=== PATIENT | female | born 1945 | race Caucasian/White ===

== ENCOUNTER 2024-01-16 11:46 | Outpatient (OUT) | payer MEDICARE, MEDICAID, SELFPAY ==
[2024-01-16 12:27] LABS: Basophils Absolute Auto 0.1 10^3/uL (0.0-0.1); Basophils Percent Auto 1.1 % (0.2-2.0); Eosinophils Absolute Auto 0.4 10^3/uL (0.0-0.7); Eosinophils Percent Auto 3.8 % (0.9-7.0); Hematocrit 39.5 % (36.0-48.0); Hemoglobin 12.9 g/dL (12.0-16.0); Immature Granulocytes Abs Auto 0.04 10^3/uL (0.00-0.03); Immature Granulocytes Pct Auto 0.4 % (0.0-0.5); Mean Corpuscular HGB Conc 32.7 g/dL (29.9-35.2); Mean Corpuscular Hemoglobin 30.6 pg (26.7-34.0); Mean Corpuscular Volume 93.6 fL (81.0-99.0); Monocytes Absolute Auto 0.8 10^3/uL (0.3-0.8); Monocytes Percent Auto 8.1 % (1.7-12.0); Neutrophils Absolute Auto 6.1 10^3/uL (1.4-6.5); Neutrophils Percent Auto 65.6 % (43.0-75.0); Platelet Count 326 10^3/uL (150-450); Red Blood Count 4.22 10^6/uL (4.20-5.40); Red Cell Distribution Width 13.2 % (11.0-15.0); White Blood Count 9.3 10^3/uL (4.0-11.0)
[2024-01-16 12:58] LABS: Free T4 1.21 ng/dL (0.76-1.46)
[2024-01-16 13:00] LABS: Alanine Aminotransferase 18 U/L (14-59); Albumin Globulin Ratio 0.9; Albumin Level 3.6 g/dL (3.4-5.0); Alkaline Phosphatase 91 U/L (46-116); Anion Gap 14.3; Aspartate Amino Transferase 16 U/L (15-37); BUN Creatinine Ratio 21.6; Bilirubin Total 0.4 mg/dL (0.2-1.0); Calcium 9.5 mg/dL (8.5-10.1); Carbon Dioxide 28.3 mmol/L (21.0-32.0); Chloride 102 mmol/L (98-107); Chol HDL Ratio 3.5; Cholesterol 169 mg/dL (<=200); Estimated GFR (African America >60 (>=60 mL/min/1.73m^2); Estimated GFR (Non-African Ame 53 (>=60 mL/min/1.73m^2); Globulin 3.8 g/dL; Glucose 253 mg/dL (74-106); HDL Cholesterol 48 mg/dL (40-60); Potassium 3.6 mmol/L (3.5-5.1); Sodium 141 mmol/L (136-145); Total Protein 7.4 g/dL (6.4-8.2); Triglycerides 206 mg/dL (<=150); VLDL CHOLESTEROL 41.2 mg/dL
== END 2024-01-16 11:47 | disposition home or self-care (01) ==
DX: E11.65 Type 2 diabetes mellitus with hyperglycemia (principal); I10 Essential (primary) hypertension
CPT/HCPCS: 36415; 80053; 80061; 84439; 84443; 84681; 85025

== ENCOUNTER 2024-05-02 10:36 | Outpatient (OUT) | payer MEDICARE, MEDICAID, SELFPAY ==
--- OUTSIDE RECORDS SUMMARY | 2024-05-02 10:49 | XMS_ITS | CCD ---
Demographics Address [address] [place] [address] Preferred Language en Marital Status Worship Affiliation Unknown Race White Ethnic Group Not or Lati no Author Organization [facility] Care Team Providers Care Joiner Apprentice Name Role Phone ROSA VOGEL Unavailable Unavailable ROSA VOGEL Unavailable Unavailable ROSA VOGEL Unavailable Unavailable ZISAUL ROMERO Unavailable Unavailable LE, ANDRES Unavailable Unavailable LE, ANDRES Unavailable Unavailable MISC, DOCTOR Unavailable Unavailable SAUL RODRIGUEZ Unavailable Unavailable PAY, BENITO Unavailable Unavailable GRECHNY, ELHAM Unavailable Unavailable Rose Hancock Unavailable Vero Painting Unavailable TASH Zavala Attending Provider TASH Zavala Attending Provider TASH Zavala Attending Provider TASH Zavala Primary Care Provide r Zuleika Reyez Attending U Zuleika Napier Admitting U navailMacey Patel Admitting Unavailab Macey Balderrama Attending Unavailab Macey Balderrama Primary Care Unavailab Macey Balderrama Admitting Unavailab le Macey Zavala Attending Unavailab PETE Peterson Attending Pr ovider Allergies Allergy Classification Reported Allergen(s) Allergy Type Date of Onset Reaction(s) Facility (1 source) No Known Drug Allergies Drug allergy (disorder) [facility] (1 source) No Allergy Information Available Drug allergy (disorder) [facility] (3 sources) some anestesia Propensity to adverse reactions itching et blisters First Active Media Other Medications Current Medications Medication Drug Class(es) Dates Sig (Normalized) Sig (Original) acetaminophen 325 mg / HYDROcodone bitartrate 5 mg oral tablet (11 sources) Opioid Agonist Start: 04-28-2019 take 1 tablet by mouth every six hours Hydrocodone-Aceta minophen ([place]) 5-325 mg tablet Active 1 TAB PO Q6H 6 2 April 28, 2019 Start: 04-28-2019 Hydrocodone-Ac etaminophen Active TABLET April 28, 2019 1:00am HYDROcodone-Acet aminophen Active [id number] 200 actuat albuterol 0.09 mg/actuat metered dose inhaler (13 sources) beta2-Adrenergic Agonist Start: 09-02-2021 take 2 puff(s) by inhalation four times daily as needed Albuterol Sulfate HFA 108 (90 Base) MCG/ACT 2 puffs Inhalation 4 times a day prn Sep, Active Start: 04-28-2019 Albuterol Sulf ate Active April 28, 2019 1:00am Start: 02-17-2017 take 2 puff(s) by in halation every four hours as needed Albuterol Sulfate HFA 108 (90 Base) MCG/ACT 2 puffs as needed Inhalation every 4 hrs Apr, Active Start: 07-31-2015 take 2 puff(s) by in halation every four hours as needed ProAir HFA 108 (90 Base) MCG/ACT 2 puffs as needed Inhalation every 4 hrs for 10 days Jul, Not-Taking azithromycin 250 mg oral tablet (4 sources) Macrolide Antimicrobial Start: 03-17-2019 Azithromycin 250 MG 2 tablet on the first day, then 1 tablet daily for 4 days Orally Once a day for 5 day(s) Sep, Active benzonatate 100 mg oral capsule (10 sources) Non-narcotic Antitussive Start: 03-17-2019 Benzonatate Active April 28, 2019 1:00am Start: 07-31-2015 take 1 capsule by mo [facility] three times daily as needed Tessalon 200 mg 1 capsule as needed Orally Three times a day for 10 day(s) Jul, Not-Taking busPIRone hydrochloride 15 m g oral tablet (7 sources) Start: 04-28-2019 Buspirone Acti ve TABLET April 28, 2019 1:00am busPIRone HCl Ac tive Cinnamon Preparation (3 sources) Non-Standardized Food Allergenic Extract Cinnamon Active Cranberry preparation (3 sources) Non-Standardized Food Allergenic Extract, Non-Standardized Plant Allergenic Extract Cranberry Active cyclobenzaprine hydrochloride 10 mg oral tablet (11 sources) Muscle Relaxant Start: 020 take 10 mg by mouth three times daily Cyclobenzaprine Active 10 MG PO Three times daily April 28, 2019 4:06pm Cyclobenzaprine HCl Active dilTIAZem hydrochloride 120 mg oral tablet (10 sources) Calcium Channel Pato Start: 04-28-2019 Diltiazem Hcl Active TABLET April 28, 2019 1:00am dilTIAZem HCl 12 0 MG Oral for 90 Not-Taking Diltiazem CD Act kade Garlic preparation (3 sources) Non-Standardized Food Allergenic Extract Garlic Active glipiZIDE 10 mg oral tablet (3 sources) Sulfonylurea take 1 tablet by mouth once daily 30 minutes before breakfast glipiZIDE 10 MG 1 tablet 30 minutes before breakfast Orally Once a day Active glyBURIDE 5 mg oral tablet (7 sources) Sulfonylurea Start: 04-28-19 20 Glyburide Active TABLET April 28, 2019 1:00am glyBURIDE Not-Ta nya hydroCHLOROthiazide 25 mg oral tablet (7 sources) Thiazide Diuretic Start: 04-28-2019 Hydrochlorothiazide Active TABLET April 28, 2019 1:00am hydroCHLOROthiaz seth Active hydroCHLOROthiazide / Lisinopril (3 sources) Thiazide Diuretic, Angiotensin Converting Enzyme Inhibitor Lisinopril-hydroCHLO ROthiazide Active lisinopril 20 mg oral tablet (4 sources) Angiotensin Converting Enzyme Inhibitor Start : 04-28 Lisinopril Active TABLET Apr 1:00am naproxen 500 mg oral tablet (7 sources) Nonsteroidal Anti-inflammatory Drug Start : 04-28 Naproxen Active TABLET 2019 1:00am Naproxen Active Naproxen Not-Casey ing nitrofurantoin, macrocrystals 25 mg / nitrofurantoin, monohydrate 75 mg oral capsule (1 source) Nitrofuran Antibacterial Start: 02-13-2021 take 1 capsule by mouth every twelve hours Macrobid 100 MG 1 cap(s) Orally bid for 5 day(s) Feb, Active phenazopyridine hydrochloride 200 mg oral tablet (1 source) Start: 02-13-2021 take 1 tablet by mouth every eight hours Pyridium 200 MG 1 tablet after meals Orally Three times a day for 2 day(s) Feb, Active pioglitazone 45 mg oral tablet (10 sources) Peroxisome Proliferator Receptor alpha Agonist, Peroxisome Proliferator Receptor gamma Agonist, Thiazolidinedione Start: 04-28-2019 Pioglitazone Active TABLET April 28, 2019 1:00am Pioglitazone HCl 45 MG Oral for 90 Not-Taking Actos Active predniSONE 20 mg oral tablet (4 sources) Start: 07-31-2015 take 1 tablet by mouth every twelve hours predniSONE 20 MG 1 tablet Orally 2 times a day for 5 day(s) Sep, Active Vitamin D (3 sources) Vitamin D Active Completed/Discontinued Medications Medication Drug Class(es) Dates Sig (Normalized) Sig (Original) Albuterol Sulfate (2.5 MG/ 3 ML) 2.5 MG/3ML 0.083% Nebulization Solution (3 sources) Start: 03-17-2019 Albuterol Sulfate (2.5 MG/ 3 ML) 2.5 MG/3ML 0.083% Nebulization Solution 3 ml Inhalation every 4 to 6 hours for 30 days Mar, Not-Taking amoxicillin 500 mg oral capsule (3 sources) Penicillin-class Antibacterial Start: 07-31-2015 take 2 capsules by mouth every eight hours Amoxicillin 500 mg 2 Capsules Orally Three times a day for 10 day(s) Jul, Not-Taking Aspir-81 (3 sources) Aspir-81 Not-Taking doxycycline monohydrate 100 mg oral capsule (3 sources) Tetracycline-class Drug Start: 02-17-2017 take 1 capsule by mouth every twelve hours Doxycycline Monohydrate 100 MG 1 capsule Orally every 12 hrs for 10 days Feb, Not-Taking fluticasone propionate 0.05 mg/actuat metered dose nasal spray (6 sources) Corticosteroid Start: 04-16-2018 take 2 spray(s) nasal route once daily Fluticasone Propionate 50 MCG/ACT 2 sprays in each nostril Nasally Once a day for 14 days pt last took 4 days ago Apr, Not-Taking Start: 02-17-2017 take 1 spray(s) nasa l route once daily Fluticasone Propionate 50 MCG/ACT 1 spray in each nostril Nasally Once a day for 21 days Feb, Not-Taking Fluticasone Propionate HFA 110 MCG/ACT (3 sources) Start: 02-17-2017 take 1 puff(s) by inhalation twice daily Fluticasone Propionate HFA 110 MCG/ACT 1 puff Inhalation Twice a day Feb, Not-Taking glipiZIDE / metFORMIN (3 sources) Biguanide, Sulfonylurea GlipiZIDE-Metfor min HCl Not-Taking guaiFENesin-Codeine 10-100 MG/5ML (3 sources) Start: 07-31-2015 take 10 mL by mouth once at bedtime as needed for cough guaiFENesin-Code ine 10-100 MG/5ML 10 ml Orally every HS prn cough for 10 day(s) Jul, Not-Taking hydrOXYzine (3 sources) Antihistamine hydrOXYzine Pamoate Not-Taking meloxicam (3 sources) Nonsteroidal Anti-inflammatory Drug Meloxicam Not-Taking methylPREDNISolone (1 source) Corticosteroid Start: 07-31-2015 Depo-Medrol 80 mg Jul, 80 mg oseltamivir 75 mg oral capsule (2 sources) Neuraminidase Inhibitor Start: 04-23-2021 take 1 capsule by mouth every twelve hours Oseltamivir Phosphate 75 MG 1 capsule Orally Twice a day for 5 day(s) Apr, Not-Taking tiZANidine 4 mg oral tablet (4 sources) Central alpha-2 Adrenergic Agonist Start: 04-28-2019 End: 04-28-2019 Tizanidine Discontinued TABLET April 28, 2019 1:00am April 28, 2019 3:41pm Problems Active Problems Problem Classification Problem Date Documented Da te Episodic/Chronic Abdominal pain (1 source) Lower abdominal pain, unspecified; Translations: [LOWER ABDOMINAL PAIN UNSPECIFIED] Onset: 07-11-2017 Episodic Asthma (1 source) Unspecified asthma, uncomplicated; Translations: [UNSPECIFIED ASTHMA UNCOMPLICATED] Onset: 05-03-2017 Chronic Diabetes mellitus with complications (2 sources) Type 2 diabetes mellitus with hyperglycemia; Translations: [Type 2 diabetes mellitus with hyperglycemia] Onset: 02-21-2023 Chronic Essential hypertension (2 sources) Essential (primary) hypertension; Translations: [ESSENTIAL PRIMARY HYPERTENSION] Onset: 07-11-2017 Chronic Genitourinary symptoms and ill-defined conditions (3 sources) Urinary incontinence; Translations: [Unspecified urinary incontinence] Chronic Nausea and vomiting (1 source) Nausea; Translations: [NAUSEA] Onset: 07-11-2017 Episodic Other aftercare (1 source) 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; 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] Onset: 07-11-2017 Episodic Other gastrointestinal disorders (4 sources) Diarrhea, unspecified; Translations: [DIARRHEA UNSPECIFIED] Onset: 07-07-2017 Episodic Screening or history of mental health and substance abuse (1 source) Personal history of nicotine dependence; Translations: [PERSONAL HISTORY OF NICOTINE DEPEND] Onset: 07-11-2017 Episodic Sprains and strains (4 sources) Low back strain; Translations: [Strain of muscle, fascia and tendon of lower back, initial encounter] 04-28-2019 Episodic Past or Other Problems Problem Classification Problem Date Documented Date Episodic/Chronic Chronic obstructive pulmonary disease and bronchiectasis (1 source) Bronchitis, not specified as acute or chronic Onset: 09-02-2021 Resolved: 09-02-2021 Episodic Genitourinary symptoms and ill-defined conditions (2 sources) Dysuria; Translations: [Hematuria, unspecified] Onset: 02-13-2021 Resolved: 02-13-2021 Episodic Immunizations and screening for infectious disease (1 source) Contact with and (suspected) exposure to other viral communicable diseases Onset: 04-23-2021 Resolved: 04-23-2021 Episodic Influenza (1 source) Influenza due to other identified influenza virus with other respiratory manifestations Onset: 04-23-2021 Resolved: 04-23-2021 Episodic Other lower respiratory disease (3 sources) Cough; Translations: [COUGH] Onset: 04-30-2017 Episodic Urinary tract infections (1 source) Urinary tract infection, site not specified Onset: 02-13-2021 Resolved: 02-13-2021 Episodic Viral infection (1 source) COVID-19 Onset: 04-23-2021 Resolved: 04-23-2021 Results Test Name Value Interpretation Reference Range Facility Creatinine [Mass/volume] in UrineOrdered By: Zuleika Reyez on 01-12-2024 Creatinine (U) [Mass/Vol] 83.00 mg/dL [facility] Comment on above: No reference range e stablished MicroAlb Creat Ratio,UOrdere d By: Zuleika Reyez on 01-12-2024 Albumin DL <= 20 mg/L (U) [Mass/Vol] 0.9 mg/dL Normal 0.0-1.8 [facility] Comment on above: Order Comment: Reaso n for Exam Type 2 diabetes mellitus with hyperglycemia;Essential (prima Performed By: #### U RMACRERAT #### [place] [address] [place] MicroAlb Creat Ratio,Uon Creatinine, Urine (Random) 83.00 mg/dL Normal [facility] Comment on above: Order Comment: Reaso n for Exam Type 2 diabetes mellitus with hyperglycemia;Essential (prima Result Comment: No r eference range established Performed By: #### U RMACRERAT #### [address] Microalbumin/Creatinine Ratio 10.8 mg/g Normal 0.0-30.0 [facility] Comment on above: Order Comment: Reaso n for Exam Type 2 diabetes mellitus with hyperglycemia;Essential (prima Result Comment: 30-3 00 mg/g indicates an increased risk for diabetic nephropathy. Greater than 300 mg/g is consistent with clinical nephropathy. (Am. J. Kidney Disease 1995, 25:107) PERFORMED BY: [place] [address] PATHOLOGIST PAPER DELIVERER NADER RIVAS M.D. Performed By: #### U RMACRERAT #### [address] Urine microalbumin/creatinin e mass ratioOrdered By: Zuleika Reyez on 01-12-2024 Albumin/Creatinine DL <= 20 mg/L (U) [Mass ratio] 10.8 mg/g 0.0-30.0 [facility] Comment on above: 30-300 mg/g indicate s an increased risk for diabetic nephropathy. Greater than 300 mg/g is consistent with clinical nephropathy. (Am. J. Kidney Disease 1994, 25:107) Alanine aminotransferase [En zymatic activity/volume] in Serum or PlasmaOrdered By: Macey Zavala on 02-21-2023 ALT [Catalytic activity/Vol] 12 U/L Normal 7-52 [facility] Comment on above: Order Comment: Reaso n for Exam Type 2 diabetes mellitus with hyperglycemia Performed By: #### C MP, CBC, TSH3 wRFLX, LIPID #### [facility] [address] Albumin [Mass/volume] in Ser um or Plasma by Bromocresol green (BCG) dye binding methoOrdered By: Macey Zavala on 02-21-2023 Albumin BCG dye [Mass/Vol] 4.0 g/dL 3.5-5.7 [facility] Alkaline phosphatase [Enzyma tic activity/volume] in Serum or PlasmaOrdered By: Macey Zavala on 02-21-2023 ALP [Catalytic activity/Vol] 74 U/L Normal 34-104 [facility] Comment on above: Order Comment: Reaso n for Exam Type 2 diabetes mellitus with hyperglycemia Performed By: #### C MP, CBC, TSH3 wRFLX, LIPID #### [facility] [address] [place] [address] Aspartate aminotransferase [ Enzymatic activity/volume] in Serum or PlasmaOrdered By: Macey Zavala on 02-21-2023 AST [Catalytic activity/Vol] 16 U/L Normal 13-39 [facility] Comment on above: Order Comment: Reaso n for Exam Type 2 diabetes mellitus with hyperglycemia Performed By: #### C MP, CBC, TSH3 wRFLX, LIPID #### [facility] [address] [place] [address] [place] Automated basophil %Ordered By: Macey Zavala on 02-21-2023 Basophils/100 WBC (Bld) 1.0 % Normal . [facility] Comment on above: Order Comment: Reaso n for Exam Type 2 diabetes mellitus with hyperglycemia Performed By: #### C MP, CBC, TSH3 wRFLX, LIPID #### [place] [address] [place] Automated basophil countOrde red By: Macey Zavala on 02-21-2023 Basophils (Bld) [#/Vol] 0.1 10*3/uL Normal 0.0-0.2 [facility] Comment on above: Order Comment: Reaso n for Exam Type 2 diabetes mellitus with hyperglycemia Result Comment: PERF ORMED BY: [place] [address] PATHOLOGIST PAPER DELIVERER NADER RIVAS M.D. Performed By: #### C MP, CBC, TSH3 wRFLX, LIPID #### [facility] [address] [place] [address] Automated blood monocyte cou ntOrdered By: Macey Zavala on 02-21-2023 Monocytes (Bld) [#/Vol] 1.0 10*3/uL High 0.0-0.8 [facility] Comment on above: Order Comment: Reaso n for Exam Type 2 diabetes mellitus with hyperglycemia Performed By: #### C MP, CBC, TSH3 wRFLX, LIPID #### [facility] [address] [place] [address] Automated eosinophil %Ordere d By: Macey Zavala on 02-21-2023 Eosinophils/100 WBC (Bld) 3.3 % Normal . [facility] Comment on above: Order Comment: Reaso n for Exam Type 2 diabetes mellitus with hyperglycemia Performed By: #### C MP, CBC, TSH3 wRFLX, LIPID #### [facility] [address] [place] [address] Automated eosinophil countOr dered By: Macey Zavala on 02-21-2023 Eosinophils (Bld) [#/Vol] 0.3 10*3/uL Normal 0.0-0.45 [facility] Comment on above: Order Comment: Reaso n for Exam Type 2 diabetes mellitus with hyperglycemia Performed By: #### C MP, CBC, TSH3 wRFLX, LIPID #### [facility] [address] [place] [address] [place] Automated monocyte %Ordered By: Macey Zavala on 02-21-2023 Monocytes/100 WBC (Bld) 9.9 % Normal . [facility] Comment on above: Order Comment: Reaso n for Exam Type 2 diabetes mellitus with hyperglycemia Performed By: #### C MP, CBC, TSH3 wRFLX, LIPID #### [facility] [address] [place] [address] [place] Automated neutrophil %Ordere d By: Macey Zavala on 02-21-2023 Neutrophils/100 WBC (Bld) 63.6 % Normal . [facility] Comment on above: Order Comment: Reaso n for Exam Type 2 diabetes mellitus with hyperglycemia Performed By: #### C MP, CBC, TSH3 wRFLX, LIPID #### [facility] [address] [place] [address] [place] Bilirubin.total [Mass/volume ] in Serum or PlasmaOrdered By: Macey Zavala on 02-21-2023 Bilirubin [Mass/Vol] 0.4 mg/dL Normal 0.3-1.0 [facility] Comment on above: Order Comment: Reaso n for Exam Type 2 diabetes mellitus with hyperglycemia Performed By: #### C MP, CBC, TSH3 wRFLX, LIPID #### [facility] [address] [place] [address] [place] Calcium [Mass/volume] in Ser um or PlasmaOrdered By: Macey Zavala on 02-21-2023 Calcium [Mass/Vol] 9.6 mg/dL Normal 8.6-10.3 [facility] Comment on above: Order Comment: Reaso n for Exam Type 2 diabetes mellitus with hyperglycemia Performed By: #### C MP, CBC, TSH3 wRFLX, LIPID #### [facility] [address] [place] [address] [place] Carbon dioxide, total [Moles /volume] in Serum or PlasmaOrdered By: Macey Zavala on 02-21-2023 CO2 [Moles/Vol] 32.3 mmol/L High 21.0-31.0 [facility] Comment on above: Order Comment: Reaso n for Exam Type 2 diabetes mellitus with hyperglycemia Performed By: #### C MP, CBC, TSH3 wRFLX, LIPID #### [facility] [address] [place] [id number] [place] Chloride [Moles/volume] in S shai or PlasmaOrdered By: Macey Zavala on 02-21-2023 Chloride [Moles/Vol] 101 mmol/L Normal 98-107 [facility] Comment on above: Order Comment: Reaso n for Exam Type 2 diabetes mellitus with hyperglycemia Performed By: #### C MP, CBC, TSH3 wRFLX, LIPID #### [facility] [address] Cholesterol [Mass/volume] in Serum or PlasmaOrdered By: Macey Zavala on 02-21-2023 Cholesterol [Mass/Vol] 162 mg/dL Normal 140-200 [facility] Comment on above: Chol less than 200 m g/dl low riskChol 201-239 mg/dl borderline riskChol 240 mg/dl and greater high risk Order Comment: Reaso n for Exam Type 2 diabetes mellitus with hyperglycemia Result Comment: Chol less than 200 mg/dl low risk Chol 201-239 mg/dl borderline risk Chol 240 mg/dl and greater high risk Performed By: #### C MP, CBC, TSH3 wRFLX, LIPID #### [facility] [address] [place] [id number] [facility] Cholesterol in LDL Calc [Mas s/Vol]Ordered By: Macey Zavala on 02-21-2023 Cholesterol in LDL [Mass/Vol] 81 mg/dL 0-100 [facility] Comment on above: LDL ATP III CLASSIFI CATIONLDL less than 100 mg/dL OptimalLDL 100-129 mg/dL Near or above optimalLDL 130-159 mg/dL Borderline highLDL 160-189 mg/dL HighLDL greater than 189 mg/dL Very high Cholesterol in VLDL Calc [Ma ss/Vol]Ordered By: Macey Zavala on 02-21-2023 Cholesterol in VLDL [Mass/Vol] 42 mg/dL [facility] Complete Blood Count Auto Di ffon 02-21-2023 Mean Corpuscular HGB Conc 33.0 g/dL Normal 32.0-35.0 [facility] Comment on above: Order Comment: Reaso n for Exam Type 2 diabetes mellitus with hyperglycemia Performed By: #### C MP, CBC, TSH3 wRFLX, LIPID #### [facility] [address] [place] [address] [place] NRBC% 0.0 /100{WBC} Normal 0-0.5 [facility] Comment on above: Order Comment: Reaso n for Exam Type 2 diabetes mellitus with hyperglycemia Performed By: #### C MP, CBC, TSH3 wRFLX, LIPID #### [address] Comprehensive Metabolic Pane michele 02-21-2023 Albumin [Mass/Vol] 4.0 g/dL Normal 3.5-5.7 [facility] Comment on above: Order Comment: Reaso n for Exam Type 2 diabetes mellitus with hyperglycemia Performed By: #### C MP, CBC, TSH3 wRFLX, LIPID #### [place] [address] [place] GFR/1.73 sq M.predicted MDRD (S/P/Bld) [Vol rate/Area] mL/min/{1.73_m2} Normal [facility] Comment on above: Order Comment: Reaso n for Exam Type 2 diabetes mellitus with hyperglycemia Performed By: #### C MP, CBC, TSH3 wRFLX, LIPID #### [address] Creatinine [Mass/volume] in Serum or PlasmaOrdered By: Macey Zavala on 02-21-2023 Creatinine [Mass/Vol] 0.91 mg/dL Normal 0.60-1.20 [facility] Comment on above: Order Comment: Reaso n for Exam Type 2 diabetes mellitus with hyperglycemia Performed By: #### C MP, CBC, TSH3 wRFLX, LIPID #### [place] [address] [place] Erythrocyte distribution wid th [Ratio] by Automated countOrdered By: Macey Zavala on 02-21-2023 Erythrocyte distribution width (RBC) [Ratio] 14.2 % Normal 11.9-15.3 [facility] Comment on above: Order Comment: Reaso n for Exam Type 2 diabetes mellitus with hyperglycemia Performed By: #### C MP, CBC, TSH3 wRFLX, LIPID #### [place] [address] [place] Erythrocytes [#/volume] in B lood by Automated countOrdered By: Macey Zavala on 02-21-2023 RBC (Bld) [#/Vol] 4.36 10*6/uL Normal 3.60-5.00 [facility] Comment on above: Order Comment: Reaso n for Exam Type 2 diabetes mellitus with hyperglycemia Performed By: #### C MP, CBC, TSH3 wRFLX, LIPID #### [facility] [address] [place] [address] [place] Glucose [Mass/volume] in Ser um or PlasmaOrdered By: Macey Zavala on 02-21-2023 Glucose [Mass/Vol] 178 mg/dL High 70-100 [facility] Comment on above: ADA recommended refe rence rangeRandom Glucose Reference Range is dependent on time and content of last meal. Glucose of more than 200 mg/dL in a nonstressed, ambulatory subject supports the diagnosis of Diabetes Mellitus. Order Comment: Reaso n for Exam Type 2 diabetes mellitus with hyperglycemia Result Comment: [place] Glucose Reference Range is dependent on time and content of last meal. Glucose of more than 200 mg/dL in a nonstressed, ambulatory subject supports the diagnosis of Diabetes Mellitus. ADA recommended reference range Performed By: #### C MP, CBC, TSH3 wRFLX, LIPID #### [facility] [address] [place] [address] [place] Hematocrit [Volume Fraction] of Blood by Automated countOrdered By: Macey Zavala on 02-21-2023 Hematocrit (Bld) [Volume fraction] 40.0 % Normal 34.0-46.4 [facility] Comment on above: Order Comment: Reaso n for Exam Type 2 diabetes mellitus with hyperglycemia Performed By: #### C MP, CBC, TSH3 wRFLX, LIPID #### [facility] [address] [place] [id number] [place] Hemoglobin [Mass/volume] in BloodOrdered By: Macey Zavala on 02-21-2023 Hemoglobin (Bld) [Mass/Vol] 13.2 g/dL Normal 11.8-15.4 [facility] Comment on above: Order Comment: Reaso n for Exam Type 2 diabetes mellitus with hyperglycemia Performed By: #### C MP, CBC, TSH3 wRFLX, LIPID #### [facility] [address] Leukocytes [#/volume] correc elaine for nucleated erythrocytes in Blood by Automated counOrdered By: Macey Zavala on 02-21-2023 WBC corrected for nucl RBC Auto (Bld) [#/Vol] 10.1 10*3/uL 3.8-11.6 [facility] Leukocytes [#/volume] in Blo od by Automated countOrdered By: Macey Zavala on 02-21-2023 WBC (Bld) [#/Vol] 10.1 10*3/uL Normal 3.8-11.6 [facility] Comment on above: Order Comment: Reaso n for Exam Type 2 diabetes mellitus with hyperglycemia Performed By: #### C MP, CBC, TSH3 wRFLX, LIPID #### [facility] [address] Lipid Panelon 02-21-2023 LDL Cholesterol,Calculated 81 mg/dL Normal 0-100 [facility] Comment on above: Order Comment: Reaso n for Exam Type 2 diabetes mellitus with hyperglycemia Result Comment: LDL ATP III CLASSIFICATION LDL less than 100 mg/dL Optimal LDL 100-129 mg/dL Near or above optimal LDL 130-159 mg/dL Borderline high LDL 160-189 mg/dL High LDL greater than 189 mg/dL Very high Performed By: #### C MP, CBC, TSH3 wRFLX, LIPID #### [facility] [address] Triglyceride w/Reflex 211 mg/dL High 0-149 [facility] Comment on above: Order Comment: Reaso n for Exam Type 2 diabetes mellitus with hyperglycemia Result Comment: TRIG ATP III CLASSIFICATION TRIG less than 150 mg/dL Normal TRIG 150-199 mg/dL Borderline high TRIG 200-500 mg/dL High TRIG greater than 500 mg/dL Very high Standard traceable to the Center for Disease Conrtrol and Prevention (CDC) test method. Performed By: #### C MP, CBC, TSH3 wRFLX, LIPID #### [facility] [address] VLDL CHOLESTEROL 42 mg/dL Normal [facility] Comment on above: Order Comment: Reaso n for Exam Type 2 diabetes mellitus with hyperglycemia Performed By: #### C MP, CBC, TSH3 wRFLX, LIPID #### [facility] [address] Lymphocytes [#/volume] in Bl ood by Automated countOrdered By: Macey Zavala on 02-21-2023 Lymphocytes (Bld) [#/Vol] 2.2 10*3/uL Normal 1.00-4.8 [facility] Comment on above: Order Comment: Reaso n for Exam Type 2 diabetes mellitus with hyperglycemia Performed By: #### C MP, CBC, TSH3 wRFLX, LIPID #### [facility] [address] [place] [address] Lymphocytes/100 leukocytes i n Blood by Automated countOrdered By: Macey Zavala on 02-21-2023 Lymphocytes/100 WBC (Bld) 22.2 % Normal . [facility] Comment on above: Order Comment: Reaso n for Exam Type 2 diabetes mellitus with hyperglycemia Performed By: #### C MP, CBC, TSH3 wRFLX, LIPID #### [facility] [address] [place] [address] MCH [Entitic mass] by Automa elaine countOrdered By: Macey Zavala on 02-21-2023 MCH (RBC) [Entitic mass] 30.3 pg Normal 24.7-34.3 [facility] Comment on above: Order Comment: Reaso n for Exam Type 2 diabetes mellitus with hyperglycemia Performed By: #### C MP, CBC, TSH3 wRFLX, LIPID #### [facility] [address] [place] [address] [place] MCHC Auto (RBC) [Mass/Vol]Or dered By: Macey Zavala on 02-21-2023 MCHC (RBC) [Mass/Vol] 33.0 g/dL 32.0-35.0 [facility] MCV [Entitic volume] by Auto mated countOrdered By: Macey Zavala on 02-21-2023 MCV (RBC) [Entitic vol] 91.8 fL Normal 80-100 [facility] Comment on above: Order Comment: Reaso n for Exam Type 2 diabetes mellitus with hyperglycemia Performed By: #### C MP, CBC, TSH3 wRFLX, LIPID #### [facility] [address] Neutrophils [#/volume] in Bl ood by Automated countOrdered By: Macey Zavala on 02-21-2023 Neutrophils (Bld) [#/Vol] 6.4 10*3/uL Normal 1.8-7.7 [facility] Comment on above: Order Comment: Reaso n for Exam Type 2 diabetes mellitus with hyperglycemia Performed By: #### C MP, CBC, TSH3 wRFLX, LIPID #### [facility] [address] [place] [address] No Panel InformationOrdered By: Macey Zavala on 02-21-2023 Estimated GFR (CKD-EPI) > 60.0 mL/Min [facility] Creatinine Clearance (Chem N/A [facility] Nucleated erythrocytes [Pres ence] in Blood by Automated countOrdered By: Macey Zavala on 02-21-2023 Nucleated RBC Auto Ql (Bld) 0.0 /100{WBC} 0-0.5 [facility] Platelet mean volume [Entiti c volume] in Blood by Automated countOrdered By: Macey Zavala on 02-21-2023 Platelet mean volume (Bld) [Entitic vol] 9.9 fL Normal 6.3-10.7 [facility] Comment on above: Order Comment: Reaso n for Exam Type 2 diabetes mellitus with hyperglycemia Performed By: #### C MP, CBC, TSH3 wRFLX, LIPID #### [facility] [address] [place] [address] [place] Platelets [#/volume] in Bloo d by Automated countOrdered By: Macey Zavala on 02-21-2023 Platelets (Bld) [#/Vol] 326 10*3/uL Normal 150-450 [facility] Comment on above: Order Comment: Reaso n for Exam Type 2 diabetes mellitus with hyperglycemia Performed By: #### C MP, CBC, TSH3 wRFLX, LIPID #### [facility] [address] [place] [address] [place] Potassium [Moles/volume] in Serum or PlasmaOrdered By: Macey Zavala on 02-21-2023 Potassium [Moles/Vol] 4.5 mmol/L Normal 3.5-5.1 [facility] Comment on above: Order Comment: Reaso n for Exam Type 2 diabetes mellitus with hyperglycemia Performed By: #### C MP, CBC, TSH3 wRFLX, LIPID #### [facility] [address] [place] [id number] [place] Protein [Mass/volume] in Ser um or PlasmaOrdered By: Macey Zavala on 02-21-2023 Protein [Mass/Vol] 6.9 g/dL Normal 6.4-8.9 [facility] Comment on above: Order Comment: Reaso n for Exam Type 2 diabetes mellitus with hyperglycemia Performed By: #### C MP, CBC, TSH3 wRFLX, LIPID #### [facility] [address] Serum globulin measurement b y calculation (mass/volume)Ordered By: Macey Zavala on 02-21-2023 Globulin (S) [Mass/Vol] 2.9 g/dL Normal [facility] Comment on above: Order Comment: Reaso n for Exam Type 2 diabetes mellitus with hyperglycemia Performed By: #### C MP, CBC, TSH3 wRFLX, LIPID #### [facility] [address] [place] [id number] [place] Serum or plasma albumin/glob ulin mass ratioOrdered By: Macey Zavala on 02-21-2023 Albumin/Globulin [Mass ratio] 1.4 {ratio} Normal [facility] Comment on above: Order Comment: Reaso n for Exam Type 2 diabetes mellitus with hyperglycemia Performed By: #### C MP, CBC, TSH3 wRFLX, LIPID #### [facility] [address] [place] [id number] [place] Serum or plasma anion gap de terminationOrdered By: Macey Zavala on 02-21-2023 Anion gap [Moles/Vol] 11.2 mmol/L Normal 6.0-15.0 [facility] Comment on above: Order Comment: Reaso n for Exam Type 2 diabetes mellitus with hyperglycemia Performed By: #### C MP, CBC, TSH3 wRFLX, LIPID #### [address] Serum or plasma high density lipoprotein (HDL) cholesterol measurementOrdered By: Macey Zavala on 02-21-2023 Cholesterol in HDL [Mass/Vol] 39 mg/dL Normal 23-92 [facility] Comment on above: HDL CHOL ATP-III CLA SSIFICATION Cardiovascular RiskHDL > or equal to 60 mg/dL LOWHDL < 40 mg/dL HIGH Order Comment: Reaso n for Exam Type 2 diabetes mellitus with hyperglycemia Result Comment: HDL CHOL ATP-III CLASSIFICATION Cardiovascular Risk HDL > or equal to 60 mg/dL LOW HDL < 40 mg/dL HIGH Performed By: #### C MP, CBC, TSH3 wRFLX, LIPID #### [address] Serum or plasma total choles terol/high density lipoprotein (HDL) cholesterol mass ratOrdered By: Macey Zavala on 02-21-2023 Cholesterol.total/Alyssa sterol in HDL [Mass ratio] 4.2 {ratio} Normal <5.0 [facility] Comment on above: Order Comment: Reaso n for Exam Type 2 diabetes mellitus with hyperglycemia Performed By: #### C MP, CBC, TSH3 wRFLX, LIPID #### [place] [address] [place] Sodium [Moles/volume] in Ser um or PlasmaOrdered By: Macey Zavala on 02-21-2023 Sodium [Moles/Vol] 140 mmol/L Normal 136-145 [facility] Comment on above: Order Comment: Reaso n for Exam Type 2 diabetes mellitus with hyperglycemia Performed By: #### C MP, CBC, TSH3 wRFLX, LIPID #### [place] [address] [place] Thyroid Stim Hormone w/Rflxo n 02-21-2023 Thyroid Stim Hormone w/Rflx 2.11 u[iU]/mL Normal 0.45-5.33 [facility] Comment on above: Order Comment: Reaso n for Exam Type 2 diabetes mellitus with hyperglycemia Result Comment: PERF ORMED BY: [place] [address] PATHOLOGIST PAPER DELIVERER NADER RIVAS M.D. Performed By: #### C MP, CBC, TSH3 wRFLX, LIPID #### [facility] [address] [place] [address] [facility] Thyrotropin [Units/volume] i n Serum or PlasmaOrdered By: Macey Zavala on 02-21-2023 TSH Qn 2.11 m[IU]/L 0.45-5.33 [facility] Triglyceride [Mass/volume] i n Serum or PlasmaOrdered By: Macey Zavala on 02-21-2023 Triglyceride [Mass/Vol] 211 mg/dL 0-149 [facility] Comment on above: TRIG ATP III CLASSIF ICATIONTRIG less than 150 mg/dL NormalTRIG 150-199 mg/dL Borderline highTRIG 200-500 mg/dL High TRIG greater than 500 mg/dL Very highStandard traceable to the Center for Disease Conrtrol and Prevention (CDC) test method. Urea nitrogen [Mass/volume] in Serum or PlasmaOrdered By: Macey Zavala on 02-21-2023 Urea nitrogen [Mass/Vol] 15 mg/dL Normal 7-25 [facility] Comment on above: Order Comment: Reaso n for Exam Type 2 diabetes mellitus with hyperglycemia Performed By: #### C MP, CBC, TSH3 wRFLX, LIPID #### [facility] [address] [place] [address] [place] Creatinine [Mass/volume] in UrineOrdered By: Macey Zavala on 01-31-2023 Creatinine (U) [Mass/Vol] 56.0 mg/dL 11.0-20.0 [facility] MicroAlb Creat Ratio,Uon Creatinine, Urine (Random) 56.0 mg/dL High 11.0-20.0 [facility] Comment on above: Order Comment: Reaso n for Exam Type 2 diabetes mellitus with hyperglycemia Performed By: #### U RMACRERAT #### [facility] [address] [place] [address] Microalbumin/Creatinine Ratio 16.0 mg/g Normal 0.0-30.0 [facility] Comment on above: Order Comment: Reaso n for Exam Type 2 diabetes mellitus with hyperglycemia Result Comment: 30-3 00 mg/g indicates an increased risk for diabetic nephropathy. Greater than 300 mg/g is consistent with clinical nephropathy. (Am. J. Kidney Disease 1994, 25:107) PERFORMED BY: [place] [address] PATHOLOGIST PAPER DELIVERER NADER RIVAS M.D. Performed By: #### U RMACRERAT #### [facility] [address] [place] [address] [place] Microalbumin [Mass/volume] i n UrineOrdered By: Macey Zavala on 01-31-2023 Albumin DL <= 20 mg/L (U) [Mass/Vol] 0.9 mg/dL Normal 0.0-1.8 [facility] Comment on above: Order Comment: Reaso n for Exam Type 2 diabetes mellitus with hyperglycemia Performed By: #### U RMACRERAT #### [facility] [address] [place] [address] Urine microalbumin/creatinin e mass ratioOrdered By: Macey Zavala on 01-31-2023 Albumin/Creatinine DL <= 20 mg/L (U) [Mass ratio] 16.0 mg/g 0.0-30.0 [facility] Comment on above: 30-300 mg/g indicate s an increased risk for diabetic nephropathy. Greater than 300 mg/g is consistent with clinical nephropathy. (Am. J. Kidney Disease 1995, 25:107) Creatinine [Mass/volume] in UrineOrdered By: Macey Zavala on 01-19-2022 Creatinine (U) [Mass/Vol] 70.9 mg/dL [facility] Comment on above: No reference range e stablished Creatinine and Glomerular fi ltration rate.predicted panel (S/P/Bld)Ordered By: Macey Zavala on 01-19-2022 Creatinine [Mass/Vol] 0.92 mg/dL 0.44-1.03 [facility] Estimated glomerular filtrat ion rate (GFR) non- AmericanOrdered By: Macey Zavala on 01-19-2022 GFR/1.73 sq M.predicted among non-blacks MDRD (S/P/Bld) [Vol rate/Area] 60 mL/Min [facility] No Panel InformationOrdered By: Macey Zavala on 01-19-2022 Estimated GFR () > 60 mL/Min [facility] Comment on above: GFR estimated refere nce range: According to KDOQI guidelines, <60 ml/min/1.73m2 is sufficient to diagnose a patient with chronic kidney disease. Pharmacy Creatinine Clearance (Chem N/A [facility] Serum or plasma anion gap de terminationOrdered By: Macey Zavala on 01-19-2022 Anion gap [Moles/Vol] 14.1 mmol/L 6.0-15.0 [facility] Serum or plasma calcium ru urement (mass/volume)Ordered By: Macey Zavala on 01-19-2022 Calcium [Mass/Vol] 9.7 mg/dL 8.2-10.2 [facility] Serum or plasma chloride vanesa surement (moles/volume)Ordered By: Macey Zavala on 01-19-2022 Chloride [Moles/Vol] 99 mmol/L 95-114 [facility] Serum or plasma glucose ru urement (mass/volume)Ordered By: Macey Zavala on 01-19-2022 Glucose [Mass/Vol] 176 mg/dL 70-100 [facility] Comment on above: ADA recommended refe rence rangeRandom Glucose Reference Range is dependent on time and content of last meal. Glucose of more than 200 mg/dL in a nonstressed, ambulatory subject supports the diagnosis of Diabetes Mellitus. Serum or plasma potassium me asurement (moles/volume)Ordered By: Macey Zavala on 01-19-2022 Potassium [Moles/Vol] 4.0 mmol/L 3.5-5.1 [facility] Serum or plasma sodium measu rement (moles/volume)Ordered By: Macey Zavala on 01-19-2022 Sodium [Moles/Vol] 137 mmol/L 136-146 [facility] Serum or plasma total carbon dioxide measurement (moles/volume)Ordered By: Macey Zavala on 01-19-2022 CO2 [Moles/Vol] 27.9 mmol/L 22.0-30.0 [facility] Serum or plasma urea nitroge n measurement (mass/volume)Ordered By: Macey Zavala on 01-19-2022 Urea nitrogen [Mass/Vol] 18 mg/dL 9- [facility] Urine microalbumin measureme nt with detection limit of 20 mg/L or less (mass/volume)Ordered By: Macey Zavala on 01-19-2022 Albumin DL <= 20 mg/L (U) [Mass/Vol] 0.3 mg/dL 0.0-1.8 [facility] Urine microalbumin/creatinin e mass ratioOrdered By: Macey Zavala on 01-19-2022 Albumin/Creatinine DL <= 20 mg/L (U) [Mass ratio] 4.0 mg/g 0.0-30.0 [facility] Comment on above: 30-300 mg/g indicate s an increased risk for diabetic nephropathy. Greater than 300 mg/g is consistent with clinical nephropathy. (Am. J. Kidney Disease 1995, 25:107) Albumin [Mass/volume] in Ser um or PlasmaOrdered By: Macey Zavala on 12-24-2021 Albumin [Mass/Vol] 3.7 g/dL 3.2-5.5 [facility] Cholesterol [Mass/volume] in Serum or PlasmaOrdered By: Macey Zavala on 12-24-2021 Cholesterol [Mass/Vol] 144 mg/dL 140-200 [facility] Comment on above: Chol less than 200 m g/dl low riskChol 201-239 mg/dl borderline riskChol 240 mg/dl and greater high risk Cholesterol in LDL Calc [Mas s/Vol]Ordered By: Macey Zavala on 12-24-2021 Cholesterol in LDL [Mass/Vol] 60 mg/dL 0-100 [facility] Comment on above: LDL ATP III CLASSIFI CATIONLDL less than 100 mg/dL OptimalLDL 100-129 mg/dL Near or above optimalLDL 130-159 mg/dL Borderline highLDL 160-189 mg/dL HighLDL greater than 189 mg/dL Very high Cholesterol in VLDL Calc [Ma ss/Vol]Ordered By: Macey Zavala on 12-24-2021 Cholesterol in VLDL [Mass/Vol] 48 mg/dL [facility] Creatinine and Glomerular fi ltration rate.predicted panel (S/P/Bld)Ordered By: Macey Zavala on 12-24-2021 Creatinine [Mass/Vol] 1.18 mg/dL 0.44-1.03 [facility] Estimated glomerular filtrat ion rate (GFR) non- AmericanOrdered By: Macey Zavala on 12-24-2021 GFR/1.73 sq M.predicted among non-blacks MDRD (S/P/Bld) [Vol rate/Area] 45 mL/Min [facility] Globulin Calc (S) [Mass/Vol] Ordered By: Macey Zavala on 12-24-2021 Globulin (S) [Mass/Vol] 2.8 g/dL [facility] No Panel InformationOrdered By: Macey Zavala on 12-24-2021 Estimated GFR () 54 mL/Min [facility] Comment on above: GFR estimated refere nce range: According to KDOQI guidelines, <60 ml/min/1.73m2 is sufficient to diagnose a patient with chronic kidney disease. Pharmacy Creatinine Clearance (Chem N/A [facility] Protein [Mass/volume] in Ser um or PlasmaOrdered By: Macey Zavala on 12-24-2021 Protein [Mass/Vol] 6.5 g/dL 6.1-7.9 [facility] Serum or plasma alanine garrett otransferase measurement without P-5'-P (enzymatic activiOrdered By: Macey Zavala on 12-24-2021 ALT No additional P-5'-P [Catalytic activity/Vol] 16 U/L 10-60 [facility] Serum or plasma albumin/glob ulin mass ratioOrdered By: Macey Zavala on 12-24-2021 Albumin/Globulin [Mass ratio] 1.3 {ratio} [facility] Serum or plasma alkaline everardo sphatase measurement (enzymatic activity/volume)Ordered By: Macey Zavala on 12-24-2021 ALP [Catalytic activity/Vol] 67 U/L 32-92 [facility] Serum or plasma anion gap de terminationOrdered By: Macey Zavala on 12-24-2021 Anion gap [Moles/Vol] 15.1 mmol/L 6.0-15.0 [facility] Serum or plasma aspartate am inotransferase measurement (enzymatic activity/volume)Ordered By: Macey Zavala on 12-24-2021 AST [Catalytic activity/Vol] 17 U/L 10-42 [facility] Serum or plasma calcium ru urement (mass/volume)Ordered By: Macey Zavala on 12-24-2021 Calcium [Mass/Vol] 9.4 mg/dL 8.2-10.2 [facility] Serum or plasma chloride vanesa surement (moles/volume)Ordered By: Macey Zavala on 12-24-2021 Chloride [Moles/Vol] 102 mmol/L 95-114 [facility] Serum or plasma glucose ru urement (mass/volume)Ordered By: Macey Zavala on 12-24-2021 Glucose [Mass/Vol] 154 mg/dL 70-100 [facility] Comment on above: ADA recommended refe rence rangeRandom Glucose Reference Range is dependent on time and content of last meal. Glucose of more than 200 mg/dL in a nonstressed, ambulatory subject supports the diagnosis of Diabetes Mellitus. Serum or plasma high density lipoprotein (HDL) cholesterol measurementOrdered By: Macey Zavala on 12-24-2021 Cholesterol in HDL [Mass/Vol] 36 mg/dL 35-85 [facility] Comment on above: HDL CHOL ATP-III CLA SSIFICATION Cardiovascular RiskHDL > or equal to 60 mg/dL LOWHDL < 40 mg/dL HIGH Serum or plasma potassium me asurement (moles/volume)Ordered By: Macey Zavala on 12-24-2021 Potassium [Moles/Vol] 4.4 mmol/L 3.5-5.1 [facility] Serum or plasma sodium measu rement (moles/volume)Ordered By: Macey Zavala on 12-24-2021 Sodium [Moles/Vol] 140 mmol/L 136-146 [facility] Serum or plasma total biliru bin measurement (mass/volume)Ordered By: Macey Zavala on 12-24-2021 Bilirubin [Mass/Vol] 0.6 mg/dL 0.3-1.2 [facility] Serum or plasma total carbon dioxide measurement (moles/volume)Ordered By: Macey Zavala on 12-24-2021 CO2 [Moles/Vol] 27.3 mmol/L 22.0-30.0 [facility] Serum or plasma total choles terol/high density lipoprotein (HDL) cholesterol mass ratOrdered By: Macey Zavala on 12-24-2021 Cholesterol.total/Alyssa sterol in HDL [Mass ratio] 4.0 {ratio} <5.0 [facility] Serum or plasma urea nitroge n measurement (mass/volume)Ordered By: Macey Zavala on 12-24-2021 Urea nitrogen [Mass/Vol] 25 mg/dL 9-23 [facility] TSH DL <= 0.005 mIU/L QnOrde red By: Macey Zavala on 12-24-2021 TSH Qn 2.06 m[IU]/L 0.45-5.33 [facility] Triglyceride [Mass/volume] i n Serum or PlasmaOrdered By: Macey Zavala on 12-24-2021 Triglyceride [Mass/Vol] 242 mg/dL 35-149 [facility] Comment on above: TRIG ATP III CLASSIF ICATIONTRIG less than 150 mg/dL NormalTRIG 150-199 mg/dL Borderline highTRIG 200-500 mg/dL High TRIG greater than 500 mg/dL Very highStandard traceable to the Center for Disease Conrtrol and Prevention (CDC) test method. COVID Quick Testingon 2021 Result Positive [employer] Other Quick Fluon 04-23-2021 FLUAV Ab CF (S) [Titer] Negative N Robert Applebaum MD Other FLUBV Ab CF (S) [Titer] Positive N Robert Applebaum MD Other Urinalysis - AUTOMATEDon Appearance (U) cloudy [employer] Other Bilirubin Ql (U) Negative [email or web address] Other Color (U) lt. yellow [employer] Other Glucose Ql (U) Negative [employer] Other Hemoglobin Ql (U) trace intact [employer] Other Ketones Ql (U) Negative [employer] Other Leukocyte esterase Test strip Ql (U) large [employer] Other Nitrite Ql (U) Negative [employer] Other pH (U) 5.5 [pH] [employer] Other Protein Ql (U) Negative [employer] Other Specific gravity (U) [Rel density] 1.020 [employer] Other Urobilinogen (U) [Mass/Vol] 0.2 mg/dL [employer] Other Urinalysis - AUTOMATED No rt [employer] Other CLOSTRIDIUM DIFFICILE PCRon 07-14-2017 C difficile Toxin Gene MISSY Negative Normal Negative [facility] Comment on above: Performed By: #### C DIFBRYCEA ####[facility] [address] [place] [address]Tom Magdaleno ROTAVIRUS AG, EIAon 07-15-19 18 Rotavirus Ag, EIA REFERT Normal [facility] Comment on above: Result Comment: Plea se refer to the following specimen for additional lab results.See Report [id number] Performed By: #### R ELLAV ####[facility] [address] [place], [place] [address]Tvcril Sharla CBC AUTO DIFFon 07-07-2017 Basophils Auto #/vol (Bld) 0.0 103/ul Normal 0.0-0.1 [facility] Comment on above: Performed By: #### C BC ####[facility] [address] [place], [place] [address]Pehugd Sharla Basophils/100 WBC Auto (Bld) 0.5 % Normal 0.2-2.0 [facility] Comment on above: Performed By: #### C BC ####[facility] [address] [place] [address]Fctxqa Sharla Eosinophils 0.1 103/ul Normal 0.0-0.7 [facility] Comment on above: Performed By: #### C BC ####[facility] [address] [place] [id number] Sharla Eosinophils/100 leukocytes 1.4 % Normal 0.9-7.0 [facility] Comment on above: Performed By: #### C BC ####[facility] [address] [place], [place] [address]Vguvsh Sharla Erythrocyte distribution width Auto Ratio (RBC) 13.8 % Normal 11.0-15.0 [facility] Comment on above: Performed By: #### C BC ####[facility] [address] [place], [place] [address]Zuboky Sharla Erythrocytes (RBC) 4.27 106/ul Normal 4.20-5.40 [facility] Comment on above: Performed By: #### C BC ####[facility] [address] [place], [place] [address]Vxsypb Sharla Hematocrit (HCT) 39.2 % Normal 36.0-48.0 [facility] Comment on above: Performed By: #### C BC ####[facility] [address] Magdaleno Hemoglobin mass conc (Bld) 13.2 g/dL Normal 12.0-16.0 [facility] Comment on above: Performed By: #### C BC ####[facility] [address] [place] [address] Sharla IG # 0.02 10e3/ul Normal 0.00-0.03 [facility] Comment on above: Performed By: #### C BC ####[facility] [address] [place] [address] Sharla IG % 0.3 % Normal 0.0-0.5 [facility] Comment on above: Performed By: #### C BC ####[facility] [address] [place] [address] Sharla Lymphocytes 1.6 103/ul Normal 1.2-3.8 [facility] Comment on above: Performed By: #### C BC ####[facility] [address] [place] [address] Sharla Lymphocytes/100 leukocytes 21.3 % Normal 20.5-60.0 [facility] Comment on above: Performed By: #### C BC ####[facility] [address] [place] [address] Sharla MANUAL DIFF REQ NO Normal [facility] Comment on above: Performed By: #### C BC ####[facility] [address] [place] [address] Sharla MCH 30.9 pg Normal 26.7-34.0 [facility] Comment on above: Performed By: #### C BC ####[facility] [address] [place] [address] Sharla MCHC mass conc (RBC) 33.7 g/dL Normal 29.9-35.2 [facility] Comment on above: Performed By: #### C BC ####[facility] [address] [place] [address] Sharla MCV 91.8 fL Normal 81.0-99.0 [facility] Comment on above: Performed By: #### C BC ####[facility] [address] [place], [place] [address]Ibqvdt Sharla Monocytes 0.9 103/ul Critically high 0.3-0.8 [facility] Comment on above: Performed By: #### C BC ####[facility] [address] [place], [place] [address]Iqhegi Sharla Monocytes/100 leukocytes 12.6 % Critically high 1.7-12.0 [facility] Comment on above: Performed By: #### C BC ####[facility] [address] [place], [place] [address]Lorexj Sharla Neutrophils 4.7 103/ul Normal 1.4-6.5 [facility] Comment on above: Performed By: #### C BC ####[facility] [address] [place], [place] [address]Wauqke Sharla Neutrophils/100 WBC Auto (Bld) 63.9 % Normal 43.0-75.0 [facility] Comment on above: Performed By: #### C BC ####[facility] [address] [place], [place] [address]Xogjdh Sharla Platelet mean volume (PMV) 10.2 fL Normal 9.5-13.5 [facility] Comment on above: Performed By: #### C BC ####[facility] [address] [place], [place] [address]Scuure Sharla Platelets 284 103/ul Normal 150-450 [facility] Comment on above: Performed By: #### C BC ####[facility] [address] [place], [place] [address]Cnuvog Sharla WBC (Leukocytes) 7.3 103/ul Normal 4.0-11.0 The [facility] Comment on above: Performed By: #### C BC ####[facility] [address] [place], [place] [address] ABD/PELVIS WO CONon 07-07 CT ABD/PELVIS WO CON [address] [place] [address] Patient: CHAYITO SAMS Exam Date: 07/07/2017DOB: 1945 Gender:F : FRANC ELHAM STEPHEN FRANC Admission #: [id number] : ANDRES JACKSON Order #: [id number] HERE TO VIEW EXAM RADIOLOGY REPORT PROCEDURE: CT ABDOMEN AND PELVIS WITHOUT CONTRAST COMPARISON: None. INDICATIONS: Acute diarrhea TECHNIQUE: Axial, Coronal, and Sagittal images were created without IV contrast. DOSE: 2536 mGycm FINDINGS: LUNG BASES: No visible pulmonary or pleural disease. LIVER: No enlargement, atrophy, abnormal density, or significant focal lesion. BILIARY: Cholecystectomy.PANCR EAS: No lesion, fluid collection, ductal dilatation, or atrophy. SPLEEN: No enlargement or focal lesion. ADRENALS: No mass or enlargement. KIDNEYS: Nonobstructing small left kidney stones.BOWEL/MESENTER Y: Marked diverticulosis of the sigmoid colon without acute inflammatory changes. No obstruction, bowel wall thickening, or mass. Normal appendix.AORTA/VASCUL AR: No aneurysm or dissection. RETROPERITONEUM: No mass or adenopathy. LYMPH NODES: No adenopathy. URINARY BLADDER: No visible focal wall thickening, lesion, or calculus. PELVIC ORGANS: No visible mass. Pelvic organs appropriate for patient age. ABDOMINAL WALL: Small fat containing umbilical hernia without strangulation.BONES: L4-5 marked degenerative disc disease. No bone lesion or fracture. OTHER: Negative. CONCLUSION: 1. No bowel obstruction or acute findings. Marked colonic diverticulosis.2. Nonobstructing left nephrolithiasis. Dictated by: Saul Rodriguez M.D. on 07/07/2017 at 17:47 Approved by: Saul Rodriguez M.D. on 07/07/2017 at 17:55 Normal [facility] CULTURE STOOLon 07-07-2017 CULTURE STOOL Culture Observations : Final, scanned result to follow in HPF Normal [facility] Comment on above: Performed By: #### C XST ####[facility] [address] [place], [place] [address]BjvztkTom Magdaleno [facility] BLD IMMUNO SCREENon OCCULT BLOOD Negative Normal NEGATIVE [facility] Comment on above: Performed By: #### O BSCRN ####[facility] [address] [place] [id number] Sharla PROF 14(COMP METB)on 018 Alanine aminotransferase (ALT) 101 U/L Critically high 9-52 [facility] Comment on above: Performed By: #### C MP ####[facility] [address] [place] [id number] Shalra Albumin 4.2 g/dL Normal 3.5-5.0 [facility] Comment on above: Performed By: #### C MP ####[facility] [address] [place] [id number] Sharla Albumin/Globulin Ratio 1.3 {ratio} Normal T [facility] Comment on above: Performed By: #### C MP ####[facility] [address] [place] [id number] Sharla Alkaline phosphatase (ALP) 131 U/L Critically high 38-126 [facility] Comment on above: Performed By: #### C MP ####[facility] [address] [place], [place] [address]Gerken Sharla Anion gap 14.8 mmol/L Normal [facility] Comment on above: Performed By: #### C MP ####[facility] [address] [place], [place] [address]Gerken Sharla Aspartate aminotransferase (AST) 87 U/L Critically high 14-36 [facility] Comment on above: Performed By: #### C MP ####[facility] [address] [place], [place] [address]Gerken Sharla Bilirubin Ql (U) 0.4 mg/dL Normal 0.2-1.3 [facility] Comment on above: Performed By: #### C MP ####[facility] [address] [place] [id number] Sharla BUN/Creatinine Ratio 20.0 mg/mg Normal [facility] Comment on above: Performed By: #### C MP ####[facility] [address] [place], [place] [address]Gerken Sharla Calcium 9.4 mg/dL Normal 8.4-10.2 [facility] Comment on above: Performed By: #### C MP ####[facility] [address] [place], [place] [address]Kqndju Sharla Chloride 95 mmol/L Critically low 98-[address] [facility] Comment on above: Performed By: #### C MP ####[facility] [address] [place], [place] [address]Kxcdau Sharla CO2 26.0 mmol/L Normal 22.0-30.0 [facility] Comment on above: Performed By: #### C MP ####[facility] [address] [place] [id number] Sharla Creatinine 0.77 mg/dL Normal 0.52-1.04 [facility] Comment on above: Performed By: #### C MP ####[facility] [address] [place] [id number] Sharla eGFR (non-black) mL/min/{1.73_m2} Normal >=60 Th [facility] Comment on above: Performed By: #### C MP ####[facility] [address] [place], [place] [address]Oitlpw Sharla Globulin 3.2 g/dL Normal [facility] Comment on above: Performed By: #### C MP ####[facility] [address] [place], [place] [address]Xwfaav Sharla Glucose mass conc 101 mg/dL Normal 74-106 The [facility] Comment on above: Performed By: #### C MP ####[facility] [address] [place], [place] [address]Wotwnl Sharla Potassium molar conc 3.7 mmol/L Normal 3.4-5.0 [facility] Comment on above: Performed By: #### C MP ####[facility] [address] [place], [place] [address]Bjkfbe Sharla Protein 7.4 g/dL Normal 6.1-8.2 [facility] Comment on above: Performed By: #### C MP ####[facility] [address] [place] [id number] Sharla Sodium 132 mmol/L Critically low 137-[address] [facility] Comment on above: Performed By: #### C MP ####[facility] [address] [place] [id number] Sharla Urea nitrogen 15.0 mg/dL Normal 7.0-17.[address] [facility] Comment on above: Performed By: #### C MP ####[facility] [address] [place] [id number] Sharla XR CHEST 2 Von 04-30-2017 XR CHEST 2 V [address] [place] [address] Patient: CHAYITO SAMS Exam Date: 04/30/2017DOB: 1945 Gender:F : DR ROSA VOGEL D.O. Admission #: [id number] : Order #: [id number] HERE TO VIEW EXAM RADIOLOGY REPORT PROCEDURE: RADIOGRAPH CHEST 2 VIEWS COMPARISON: CHEST 2V, 06/05/2010. CHEST 1V, 12/15/2011. INDICATIONS: Acute cough, right upper posterior thoracic pain FINDINGS: LUNGS: Stable right upper lobe calcified granuloma. No acute infiltrates.VASCULATU RE: No increased pulmonary vasculature. PLEURA: No pneumothorax, effusion, or pleural thickening. CARDIAC: No cardiomegaly or cardiac silhouette abnormality. MEDIASTINUM: No visible mass or adenopathy. BONES: No fracture or visible bone lesion. OTHER: Negative. CONCLUSION: 1. No acute cardiopulmonary process. Stable chest. Dictated by: Saul Rodriguez M.D. on 04/30/2017 at 10:24 Approved by: Saul Rodriguez M.D. on 04/30/2017 at 10:26 Normal [facility] Vital Signs Date Time Vital Sign Value Performing Clinician Facility 09-02-2021 16:25-0400 Body height 167.64 cm Rose Hancock Other [facility] Other 09-02-2021 16:25-0400 Body mass index (BMI) [Ratio] 43.57 kg/m2 Rose Hancock Other [facility] Other 09-02-2021 16:25-0400 Body temperature 98.9 [degF] Rose Hancock Other [facility] Other 09-02-2021 16:25-0400 Body weight 122.47 kg Rose Hancock Other [facility] Other 09-02-2021 16:25-0400 Respiratory rate 18 /min Rose Hancock Other [facility] Other 09-02-2021 16:25-0400 SaO2% (BldA) [Mass fraction] 94 % Rose Hancock Other [facility] Other 04-23-2021 15:00-0500 Body height 167.64 cm [employer] Other [facility] Other 04-23-2021 15:00-0500 Body mass index (BMI) [Ratio] 45.19 kg/m2 [employer] Other [facility] Other 04-23-2021 15:00-0500 Body temperature 97 [degF] [employer] Other [facility] Other 04-23-2021 15:00-0500 Body weight 127.01 kg [employer] Other [facility] Other 04-23-2021 15:00-0500 Respiratory rate 18 /min [employer] Other [facility] Other 04-23-2021 15:00-0500 SaO2% (BldA) [Mass fraction] 93 % [employer] Other [facility] Other 02-13-2021 13:50-0500 Body height 167.64 cm Rose Hancock Other [facility] Other 02-13-2021 13:50-0500 Body mass index (BMI) [Ratio] 46 kg/m2 Rose Lunamond Other [facility] Other 02-13-2021 13:50-0500 Body temperature 97.5 [degF] Rose Hancock Other [facility] Other 02-13-2021 13:50-0500 Body weight 129.28 kg Rose Hancock Other [facility] Other 02-13-2021 13:50-0500 Diastolic blood pressure 63 mm[Hg] Rose Lunamond Other [facility] Other 02-13-2021 13:50-0500 Respiratory rate 18 /min Rose Hancock Other [facility] Other 02-13-2021 13:50-0500 SaO2% (BldA) [Mass fraction] 96 % Roes Hancock Other [facility] Other 02-13-2021 13:50-0500 Systolic blood pressure 148 mm[Hg] Rose Karissa Other [facility] Other Encounters Encounter Date Encounter Type Care Provider Facility Start: 01-12-2024 End: 01-12-2024 ambulatory Zuleika Reyez Facility:[facility] Start: 01-12-2024 End: 01-12-2024 Departed Referred THERAPEUTIC PROGRAM WORKER-C Zuleika Reyez Work Phone: [facility] Start: 02-21-2023 End: 02-21-2023 Patient encounter procedure LEAF STRIPPER Macey Lucas Work Phone: [facility] [place] Work Phone: Start: 02-21-2023 End: 02-21-2023 ambulatory LEAF STRIPPER Macey Pagan Alda Work Phone: [facility] Work Phone: Start: 01-31-2023 End: 01-31-2023 ambulatory Macey Pagan Lucas [facility] Work Phone: Start: 01-31-2023 End: 01-31-2023 Patient encounter procedure LEAF STRIPPER Macey Lucas Work Phone: [facility] Start: 01-19-2022 End: 01-19-2022 ambulatory LEAF STRIPPER Macey Alda Work Phone: [facility] Work Phone: Start: 01-19-2022 End: 01-19-2022 Departed Referred LEAF STRIPPER Macey Lucas Work Phone: [facility] Start: 12-24-2021 End: 12-24-2021 Departed Referred LEAF STRIPPER Macey Lucas Work Phone: [facility] Start: 09-02-2021 End: 09-02-2021 ambulatory Rose Hancock Other [facility] Other Start: 09-02-2021 Office outpatient visit 15 minutes Rose Hancock [facility] Start: 04-23-2021 End: 04-23-2021 ambulatory [employer] Other [facility] Other Start: 04-23-2021 Office outpatient visit 15 minutes [employer] [facility] Start: 02-13-2021 End: 02-13-2021 ambulatory Rose Hancock Other [facility] Other Start: 02-13-2021 Office outpatient visit 25 minutes Rose Karissa [facility] Start: 07-07-2017 End: 07-07-2017 Ambulatory ANDRES JACKSON Facility:[facility] Start: 04-30-2017 End: 04-30-2017 Ambulatory ROSA VOGEL Facility:[facility] Payers Date Payer Category Payer Medicaid [id number] 2. [id number] 2023 Self-pay [id number] 2023 Unknown [id number] 2012 Medicare [id number] 2.1 [id number] 1959 Medicare [id number] Private Health Insurance [id number] Unknown [id number] Unknown [id number] Social History Date Type Detail Facility Unknown if ever smoked [facility] Other Sex Assigned At Sex Assigned At Bir th [facility] Other Start: 04-28-2019 End: 04-28-2019 Tobacco smoking status ORIS Ex-smoker (finding) [facility] Start: 1945 Sex Assigned At Female F [facility] Evaluation note 09-02-2021 Note Date & Type Note Facility 09-02-2021 Evaluation note Encounter Date Diagnosis Assessment Notes Sep, Bronchitis (ICD-10 - J40) Drink plenty fluids, get plenty of rest. Continue home medications as prescribed. Take the prednisone as prescribed until gone. Take the azithromycin as prescribed until gone. Use the albuterol inhaler as prescribed as needed for cough or shortness of breath. Take Tylenol or Motrin for aches pains or fevers. Follow-up with your family physician if no improvement in 2 to 3 days. [facility] Other Evaluation note 04-23-2021 Note Date & Type Note Facility 04-23-2021 Evaluation note Encounter Date Diagnosis Assessment Notes Apr, COVID (ICD-10 - U07.1) Covid test pos in office today. Pt is to use inhaler as prescribed prn for cough and wheeze. Supportive care as directed. Push fluids and rest. Pt is to take otc antipyretic prn for fever and aches. Pt is to take otc cough suppressant prn for cough. They are to follow the recommended stay at home quarantine rules for 10 days from onset of sx and they are to avoid contact with others in the home. Pt is to be re-evaluated after tx if sx worsen or don't improve by pcp or UC. Discussed at length sx of resp distress that would indicate need for immediate ER tx. Sx include but not limited to worsening SOB, wheeze, dyspnea, difficulty swallowing or breathing, and chest pain. Go straight to ER for any of these sx. Pt is to call the office with any questions or concerns regarding dx and tx. Information sheet with test results, general info on covid virus, and info sheet about treatment at home and quarantine guidelines was provided to pt in office today. Pt was referred to PCP for chronic management. Pt understood and agreed to tx plan. Apr, Influenza B (ICD-10 - J10.1) Discussed viral vs bacterial etiology with pt and how her sx are viral at this time. Therefore, no abx is indicated for tx. Pt to take meds as directed. Supportive care as discussed. Push fluids and rest. Pt denied school or work note today. Pt is to take otc antipyretic prn for fever and aches. Pt is to take otc cough suppressant prn for cough. Pt is to be re-evaluated after tx if sx worsen or don''t improve by pcp. Pt is to call the office with any questions or concerns regarding dx and tx. Pt understood and agreed to tx plan. Apr, Contact with and (suspected) exposure to other viral communicable diseases (ICD-10 - Z20.828) covid and flu test both POS, see above. Apr, Other Additional time spent conducting pre-visit phone call, screening for symptoms, instructions on social distancing, application and removal of PPE, and cleaning of examination room, equipment and supplies was preformed. Patient education given for testing methodology and results. Patient care instructions given in writting by [facility] Care At Home document. [facility] Other Evaluation note 02-13-2021 Note Date & Type Note Facility 02-13-2021 Evaluation note Encounter Date Diagnosis Assessment Notes Feb, Dysuria (ICD-10 - R30.0) Feb, Urinary tract infection, site not specified (ICD-10 - N39.0) Feb, Hematuria, unspecified (ICD-10 - R31.9) [facility] Other Evaluation note Note Date & Type Note Facility Evaluation note No assessment information availa [facility] Work Phone: History general Narrative - Reported Note Date & Type Note Facility History general Narrative - Reported Type Medical History Hypertension Medical History Diabetes Medical History Other chronic pain Medical History Dorsalgia, unspecified Medical History Osteoarthritis of mu ltiple joints, unspecified osteoarthritis type Medical History Anxiety Surgical History diskectomy Surgical History cholecystectomy Surgical History cyst removal Surgical History x2 Surgical History wisdom teeth Hospitalization History see above surgical histo ry [facility] Other Summary Purpose Family History Relationship Condition Age at Onset Recorded Date/T lizz father Diabetes mellitus Unknown Malignant neoplasm Unknown Hypertension Unknown mother Unknown Advance Directives Advance Directive Response Recorded Date/ Time Advance Directives No January 16, 2017 9:02am Advance Directive Response Recorded Date/ Time Advance Directives No January 16, 2017 8:02am Chief Complaint and Reason for Visit Chief Complaint E11.65 Abnormal results of kidney function studies Chief Complaint Type 2 diabetes javi itus with hyperglycemia Chief Complaint E11.65Type 2 diabete s mellitus W/hyperglycemia E11.09 Chief Complaint Type 2 diabetes javi itus with hyperglycemia;Essent Additional Source Comments INFORMATION SOURCE (unrecogn ized section and content) DATE CREATED AUTHOR 09/22/2017 [facility] DATE CREATED AUTHOR AUTHOR'S ORGANIZ ATION 01/15/2024 [facility] REASON FOR VISIT (unrecogniz ed section and content) POSS UTI, ITCHING, BURNING#2 1 RED STROUD ESCAPE, COUGH, FEVER, B/A, CONGESTIONRED ESCAPE, COUGH, CONGESTION Care Teams (unrecognized sec tion and content) Team Status: Inactive Member Role Status Dates Macey Zavala APRN THERAPEUTIC PROGRAM WORKER-C Attending Provider A ctive Team Status: Active Member Role Status Dates Macey Zavala APRN THERAPEUTIC PROGRAM WORKER-C Primary Care Provide r Active Team Status: Inactive Member Role Status Dates Macey Zavala APRN THERAPEUTIC PROGRAM WORKER-C Primar y Care Provider, Attending Provider Active Team Status: Inactive Member Role Status Dates Zuleika storey , THERAPEUTIC PROGRAM WORKER-C Attending Provider Active Start: January 12, 2024 End: January 12, 2024 Goals (unrecognized section and content) Goals may be documented in a n alternate section FOR RECORDS PERTAINING TO PATIENTS WHO ARE OR HAVE BEEN ENROLLED IN A CHEMICAL DEPENDENCY/SUBSTANCEABUSE PROGRAM, SOME INFORMATION MAY BE OMITTED. This clinical summary was aggregated from multiple sources. Caution should be exercised in using it in the provision of clinical care. This summary normalizes information from multiple sources, and as a consequence, information in this document may materially change the coding, format and clinical context of patient data. In addition, data may be omitted in some cases. CLINICAL DECISIONS SHOULD BE BASED ON THE PRIMARY CLINICAL RECORDS. [facility]. provides no warranty or guarantee of the accuracy or completeness of information in this document.
[2024-05-02 12:26] LABS: Alanine Aminotransferase 16 U/L (14-59); Albumin Globulin Ratio 0.9; Albumin Level 3.4 g/dL (3.4-5.0); Alkaline Phosphatase 68 U/L (46-116); Anion Gap 11.5; Aspartate Amino Transferase 15 U/L (15-37); BUN Creatinine Ratio 20.6; Bilirubin Total 0.4 mg/dL (0.2-1.0); Calcium 9.1 mg/dL (8.5-10.1); Chloride 102 mmol/L (98-107); Chol HDL Ratio 3.6; Cholesterol 162 mg/dL (<=200); Estimated GFR (African America >60 (>=60 mL/min/1.73m^2); Estimated GFR (Non-African Ame 53 (>=60 mL/min/1.73m^2); Globulin 3.6 g/dL; Glucose 193 mg/dL (74-106); HDL Cholesterol 45 mg/dL (40-60); Magnesium 1.4 mg/dL (1.8-2.4); Potassium 3.5 mmol/L (3.5-5.1); Sodium 142 mmol/L (136-145); Thyroid Stimulating Hormone 3.111 uIU/mL (0.358-3.740); Triglycerides 249 mg/dL (<=150); VLDL CHOLESTEROL 49.8 mg/dL
[2024-05-03 05:07] LABS: Vitamin B12 357 pg/mL (232-1245)
== END 2024-05-02 10:37 | disposition home or self-care (01) ==
PROVIDERS: PCP Nurse Practitioner Family; Visit Provider Nurse Practitioner Family
DX: E11.65 Type 2 diabetes mellitus with hyperglycemia (principal); I10 Essential (primary) hypertension; G89.29 Other chronic pain
CPT/HCPCS: 36415; 80053; 80061; 82306; 82607; 83735; 84436; 84443